=== PATIENT | male | born 1990 | race African-American/Black ===

== ENCOUNTER 2022-08-05 10:25 | Outpatient (CLI) | payer BC | END 2022-08-05 10:26 | disposition home or self-care (01) | LOC: ULT 10:25 | PROVIDERS: ATTEND Nurse Practitioner Family | DX: K42.9 Umbilical hernia without obstruction or gangrene (principal) | CPT/HCPCS: 76705 ==

== ENCOUNTER 2022-10-07 08:17 | Outpatient (CLI) | payer BC ==
[2022-10-07 09:28] LABS: #Basophils 0.1 10x3/uL (0.0-0.2); #Eosinphils 0.1 10x3/uL (0.0-0.5); #Monocytes 0.6 10x3/uL (0.0-1.1); #Neutrophils 4.3 10x3/uL (1.5-8.4); %Basophils 0.9 % (0.0-2.0); %Eosinophils 1.6 % (0.0-6.0); %Lymphocytes 32.7 % (18.0-47.0); %Monocytes 7.9 % (0.0-10.0); %Neutrophils 56.6 % (40.0-75.0); Hematocrit 45.6 % (38.8-50.0); Hemoglobin 14.9 g/dL (13.5-17.5); Mean Corpuscular HGB CONC 32.7 g/dL (32.0-36.0); Mean Corpuscular Hemoglobin 29.1 pg (27.0-33.0); Mean Corpuscular Volume 89.1 fl (81.2-95.1); Mean Platelet Volume 12.3 fl (7.4-10.4); Platelet Count 299 10x3/uL (150-450); RBC Distribution Width 12.7 % (11.5-14.5); Red Blood Cell (RBC) Count 5.12 10x6/uL (4.32-5.72); White Blood Cell (WBC) Count 7.6 10x3/uL (3.5-10.5)
[2022-10-07 09:31] LABS: Anion Gap 13 mmol/L (10-20); BUN (Urea Nitrogen) 15 mg/dL (8.9-20.6); Calc. Creatinine Clearance 0 mL/min (70-130); Calcium 9.5 mg/dL (7.8-10.44); Carbon Dioxide 26 mmol/L (22-29); Chloride 105 mmol/L (98-107); Estimated GFR 78; Glucose 113 mg/dL (70-105); Sodium 139 mmol/L (136-145)
== END 2022-10-07 08:18 | disposition home or self-care (01) ==
LOC: LABBT 08:17
PROVIDERS: ATTEND Specialist
DX: Z01.818 Encounter for other preprocedural examination (principal); K42.9 Umbilical hernia without obstruction or gangrene
CPT/HCPCS: 80048; 85025; 93005; 93010

== ENCOUNTER 2022-10-11 06:00 | Day surgery (SDC) | payer BC ==
[2022-10-07 08:44] VITALS: BMI 33.2
[2022-10-11] MEDS ORDERED: Ketorolac Tromethamine 30 MG/ML VIAL ONE (06:44)
[2022-10-11] MEDS ORDERED: Acetaminophen 500 MG TAB ONE (06:44)
[2022-10-11] MEDS ORDERED: EPINEPHrine 1 MG/ML AMP ONE (06:55)
[2022-10-11] MEDS ORDERED: Bupivacaine 0.25% HCL 30 ML VIAL ONE ×2 (06:55→08:05)
[2022-10-11] MEDS ORDERED: Scopolamine 1.5 mg/72 hour Patch ONE (07:12)
[2022-10-11] MEDS ORDERED: Midazolam HCl 2 mg/2 ml Vial ONE (07:12)
[2022-10-11] MEDS ORDERED: fentaNYL 50 mcg/mL 1 mL Vial ONE (07:12)
[2022-10-11] MEDS ORDERED: HYDROmorphone 0.5 MG/0.5 ML SYRINGE ONE (07:13)
[2022-10-11] MEDS ORDERED: CEFAZOLIN 2 GM VIAL ONE (07:22)
[2022-10-11] MEDS ORDERED: Sodium Chloride 0.9% 100 ML ONE (07:22)
[2022-10-11] MEDS ORDERED: Dexamethasone 20 MG/5 ML VIAL ONE (07:29)
[2022-10-11] MEDS ORDERED: PROPOFOL 200 MG/20 ML VIAL ONE (07:29)
[2022-10-11] MEDS ORDERED: Ondansetron PF 4 MG/2 ML Vial ONE (07:29)
[2022-10-11] MEDS ORDERED: Lidocaine 1% PF 5 ML VIAL ONE (07:29)
== END 2022-10-11 11:45 | disposition home or self-care (01) ==
LOC: SDC 06:00
PROVIDERS: ATTEND Specialist
PROC: 0WUF0JZ Supplement Abdominal Wall with Synthetic Substitute, Open Approach (ICD-10-PCS; principal; 2022-10-11)
DX: K42.9 Umbilical hernia without obstruction or gangrene (principal); I10 Essential (primary) hypertension; Z79.899 Other long term (current) drug therapy
CPT/HCPCS: C1889; J0171; J1170; J1885; J2250; J3010; J3490; S0020